=== PATIENT | male | born 1985 | race African-American/Black ===

== ENCOUNTER 2021-05-15 11:34 | Emergency (ER) | payer OTHER ==
[~2021-05-15] VITALS: Ht 180.3 cm; Wt 92.7 kg
[2021-05-15 13:12] VITALS: BP 128/70
== END 2021-05-15 13:35 | disposition home or self-care (01) ==
LOC: M ED 11:34
DX: L73.0 Acne keloid (principal); R19.09 Other intra-abdominal and pelvic swelling, mass and lump; Z88.8 Allergy status to other drugs, medicaments and biological substances